=== PATIENT | male | born 1975 | race Caucasian/White ===

== ENCOUNTER 2018-01-12 08:57 | Day surgery (SDC) | payer BC ==
--- NOTE | 2018-01-12 07:23 | HP ---
DATE OF SURGERY: 01/12/2018 ADMISSION DIAGNOSIS: Right inguinal hernia. ANTICIPATED PROCEDURE: HISTORY OF PRESENT ILLNESS: The patient has a large right inguinal hernia recurrent presents for repair. PAST MEDICAL HISTORY: ALLERGIES: NONE. MEDICATIONS: None. PAST SURGICAL HISTORY: Hernia surgery 2016. SOCIAL HISTORY: Negative. FAMILY HISTORY: Negative. REVIEW OF SYSTEMS: Negative. PHYSICAL EXAMINATION: VITAL SIGNS: Normal. CHEST: Clear. COR: Regular. ABDOMEN: No palpable organomegaly or mass. IMPRESSION: Large symptomatic hernia. PLAN: Repair.
[~2018-01-12 08:57] MED LIST: KEFZOL 1 GM ONE; Lactated Ringers 1,000 ML IV ONE; Sensorcaine 0.25% 10 ML ONE
[2018-01-12] MEDS ORDERED: LIDOCAINE HCL 2% 100 MG/5 ML IJ ONE (08:58)
[2018-01-12] MEDS ORDERED: Marcaine Spinal Ampul IJ ONE (08:58)
[2018-01-12] MEDS ORDERED: Versed 2 MG/2 ML Injection IV ONE (08:58)
[2018-01-12] MEDS ORDERED: DIPRIVAN 200 MG/20 ML IV ONE (08:58)
[2018-01-12] MEDS ORDERED: TORAdol 30 mg Injection IJ ONE (08:58)
[2018-01-12] MEDS ORDERED: Decadron 4 MG INJ IV ONE (08:58)
[2018-01-12] MEDS ORDERED: CEFAZOLIN 2 GM-D5W BAG** 2 GM/50 ML ML IV ONE (09:30)
[2018-01-12] MEDS ORDERED: Pepcid 20 MG VIAL IV ONE (09:30)
[2018-01-12] MEDS ORDERED: Transderm Scop 1.5MG Patch ONE (09:30)
[2018-01-12] MEDS ORDERED: Lactated Ringers 1,000 ML IV ONE (09:31)
[2018-01-12] MEDS ORDERED: Reglan 10 MG/2 ML ONE (09:31)
[2018-01-12] MEDS: Lactated Ringers 1,000 ML IV SCH (09:34)
[2018-01-12] MEDS: Transderm Scop 1.5MG Patch TOP PRN (09:34)
[2018-01-12] MEDS: CEFAZOLIN 2 GM-D5W BAG** 2 GM/50 ML ML IV SCH (09:35)
[2018-01-12] MEDS: Pepcid 20 MG VIAL IV ONE (09:54)
[2018-01-12] MEDS: Reglan 10 MG/2 ML IV ONE (09:54)
[2018-01-12 15:02] VITALS: O2SAT 100
[2018-01-12 15:30] VITALS: BP 137/73; PULSE 41
--- NOTE | 2018-01-13 09:31 | OP ---
SURGERY DATE/TIME: 01/12/2018 1205 PREOPERATIVE DIAGNOSIS: Recurrent right inguinal hernia large. POSTOPERATIVE DIAGNOSIS: Recurrent right inguinal hernia large. PROCEDURE: Right inguinal herniorrhaphy with mesh. SURGEON: Kishore Lemus M.D. ANESTHESIA: General. COMPLICATIONS: None. CONDITION: Stable. INDICATION: The patient has symptomatic right inguinal hernia recurrent. He had this done two years ago. DESCRIPTION OF PROCEDURE: Taken to surgery. General anesthetic. Routine prep and drape. Curvilinear incision. He had a fair amount of scarring. External oblique opened. There was a 7 inch indirect hernia sac which was taken down. It had small bit of sliding on the medial corner. Suture was placed just above this with 0 Prolene. Excess sac removed. The floor was repaired with 0 Prolene and then a 1 x 4 mesh was placed in a Romario's ligament type fashion throughout and secured with 0 Prolene. Internal ligament was one clamp tight. Hemostasis satisfactory. It looked like very solid repair. External oblique closed with 0 Vicryl. Chava fascia closed with 3-0 Vicryl. Skin closed with 4-0 Vicryl. Steri-Strips applied. Sterile dressing applied. The patient tolerated the procedure satisfactorily.
== END 2018-01-12 15:15 | disposition home or self-care (01) ==
LOC: SDC 08:57
PROVIDERS: ATTEND Surgery
DX: K40.91 Unilateral inguinal hernia, without obstruction or gangrene, recurrent (principal)
CPT/HCPCS: 64486; 76937; 76942; C1781; J0690; J1100; J1885; J2250; J2704; A9270-GY

== ENCOUNTER 2021-06-05 11:03 | Observation (INO) | payer BC ==
--- NOTE | 2021-06-05 11:22 | ERPHSYRPT ---
- History of Present Illness Time Seen by Provider: 06/05/21 11:17 Source: patient Exam Limitations: no limitations Patient Subjective Stated Complaint: Pt states "I had ACL/Meniscus surgery on the [address] Valdez and I called him this morning and he said I need an ultr asound due to the swelling and pain." Triage Nursing Assessment: Pt presnted alert and oriented X 3, skin pwd. Pt has a knee fixater device on his left knee. Pt has swelling noted to hhis left ankle. Physician History: pt is 10 days SP Left ACL repair and now has swelling left ankle with neuropathic pain and just started gabapentin. No fever, no erythema. wound looks good. Nontender underlying bone, but general hypesthesia to skin touch in stocking pattern. Pulses and cap refill good. Method of Injury: other Occurred: this morning Quality: constant Severity of Pain-Max: moderate Severity of Pain-Current: moderate Lower Extremities Pain: leg: left Modifying Factors: Improves With: movement Associated Symptoms: none Allergies/Adverse Reactions: No Known Drug Allergies Allergy (Verified 01/06/18 10:45) Home Medications: Famotidine [Pepcid AC] 20 mg PO DAILY PRN PRN 01/12/18 [History] Hx Tetanus, Diphtheria Vaccination/Date Given: Yes Hx Influenza Vaccination/Date Given: No Hx Pneumococcal Vaccination/Date Given: No Immunizations Up to Date: Yes Travel Risk - International Travel Have you traveled outside of the country in past 3 weeks: No - Coronavirus Screening Are you exhibiting any of the following symptoms?: No Close contact with a COVID-19 positive Pt in past 14-21 Days: No - Vaccine Status Have you recieved a Covid-19 vaccination: No - Review of Systems Constitutional: No Fever, No Chills Eyes: No Symptoms Ears, Nose, & Throat: No Symptoms Respiratory: No Cough, No Dyspnea Cardiac: No Chest Pain, No Edema, No Syncope Abdominal/Gastrointestinal: No Abdominal Pain, No Nausea, No Vomiting, No Diarrhea Genitourinary Symptoms: No Dysuria Musculoskeletal: Other, No Back Pain, No Neck Pain Skin: No Symptoms, No Rash Neurological: No Symptoms, No Dizziness, No Focal Weakness, No Sensory Changes Psychological: No Symptoms Endocrine: No Symptoms All Other Systems: Reviewed and Negative - Past Medical History Pertinent Past Medical History: Yes Neurological History: No Pertinent History ENT History: No Pertinent History Cardiac History: No Pertinent History Respiratory History: No Pertinent History Endocrine Medical History: No Pertinent History Musculoskeletal History: No Pertinent History GI Medical History: GERD, Hemorrhoids, Hernia History: No Pertinent History Psycho-Social History: No Pertinent History Male Reproductive Disorders: No Pertinent History - Past Surgical History Past Surgical History: Yes Neuro Surgical History: No Pertinent History Cardiac: No Pertinent History Respiratory: No Pertinent History Gastrointestinal: Appendectomy, Hernia Repair Genitourinary: No Pertinent History Musculoskeletal: No Pertinent History Male Surgical History: No Pertinent History Other Surgical History: left knee - Social History Smoking Status: Never smoker Exposure to second hand smoke: No Drug Use: none Patient Lives Alone: No - Nursing Vital Signs Nursing Vital Signs: Initial Vital Signs Temperature 98.3 F 06/05/21 11:09 Pulse Rate 64 06/05/21 11:09 Respiratory Rate 20 06/05/21 11:09 Blood Pressure 168/93 06/05/21 11:09 O2 Sat by Pulse Oximetry 98 06/05/21 11:09 Pain Scale Pain Intensity 6 - Physical Exam General Appearance: no apparent distress, alert Eyes, Ears, Nose, Throat Exam: moist mucous membranes Neck Exam: non-tender, supple Cardiovascular/Respiratory Exam: chest non-tender, normal breath sounds, regular rate/rhythm, no respiratory distress Gastrointestinal/Abdominal Exam: non-tender, guarding Back Exam: normal inspection, No vertebral tenderness Hips Exam: bilateral: non-tender, normal inspection, normal range of motion, no evidence of injury Legs Exam: right leg: non-tender, normal inspection, normal range of motion, no evidence of injury, left leg: pain, swelling, other (hypesthesia) Knees Exam: bilateral knee: non-tender, normal inspection, normal range of motion, no evidence of injury Ankle Exam: bilateral ankle: non-tender, normal inspection, normal range of motion, no evidence of injury Foot Exam: left foot: pain, bilateral foot: normal inspection, normal range of motion, no evidence of injury DTR - Lower Extremities Exam: knee (R): 2+, knee (L): 2+, ankle (R): 2+, ankle (L): 2+ Neuro/Tendon Exam: normal sensation, normal motor functions Mental Status Exam: alert, oriented x 3, cooperative Skin Exam: normal color, warm, dry SpO2 Interpretation: normal SpO2: 98 O2 Delivery: Room Air - Course Nursing assessment & vital signs reviewed: Yes - Radiology Ultrasound Exam Left Venous Lower Extremity Ultrasound: discussed w/radiologist, tele radiology report, Other (Deep Femoral DVT.) Ordered Tests: Active Orders 24 hr Category Date Time Status VENOUS UNILAT/LIMITED EXTREMIT [US] Stat Exams 06/05/21 11:23 Completed CBC W DIFF Stat Lab 06/05/21 11:45 Completed Lab/Rad Data: Laboratory Result Diagrams 06/05/21 11:45 Laboratory Results 06/05/21 Range/Units 11:45 WBC 8.1 (4.0-10.5) K/mm3 RBC 4.97 (4.1-5.6) M/mm3 Hgb 15.4 (12.5-18.0) gm/dl Hct 47.1 (42-50) % MCV 94.8 (78-100) fl MCH 31.0 (26-32) pg MCHC 32.7 (32-36) g/dl RDW 12.4 (11.5-14.0) % Plt Count 269 (150-450) K/mm3 MPV 9.6 (7.5-11.0) fl Gran % 57.3 (36.0-66.0) % Eos # (Auto) 0.29 (0-0.5) Absolute Lymphs (auto) 2.44 (1.0-4.6) Absolute Monos (auto) 0.67 (0.0-1.3) Lymphocytes % 30.1 (24.0-44.0) % Monocytes % 8.3 (0.0-12.0) % Eosinophils % 3.6 (0.00-5.0) % Basophils % 0.7 (0.0-0.4) % Absolute Granulocytes 4.65 (1.4-6.9) Basophils # 0.06 (0-0.4) - Progress Progress: improved, re-examined Progress Note: 06/05/21 12:49 Discussed with pt and Dr. Johnson covering and all agree best on observation with beginning Lovenox initially to monitor for further symptoms. Discussed with : Gerry Will see patient in: hospital (observation) Counseled pt/family regarding: lab results, diagnosis, need for follow-up, rad results - Departure Departure Disposition: Observation Clinical Impression: Dvt femoral (deep venous thrombosis) Condition: Good Critical Care Time: No Referrals: YASMINE MIXON, FINANCIAL SERVICES TECHNICIAN [Primary Care Provider] - Follow up/PCP as directed
[2021-06-05 11:57] LABS: Absolute Neutrophil Ct (ANC) 4.65 (1.4-6.9); BASOPHIL % 0.7 % (0.0-0.4); Basophil (Absolute #) 0.06 (0-0.4); Eosinophil % 3.6 % (0.00-5.0); Eosinophil (Absolute #) 0.29 (0-0.5); Hematocrit 47.1 % (42-50); Hemoglobin 15.4 gm/dl (12.5-18.0); Lymphocyte (Absolute #) 2.44 (1.0-4.6); Lymphocytes % 30.1 % (24.0-44.0); Mean Cell Volume 94.8 fl (78-100); Mean Corpuscular Hgb Concent. 32.7 g/dl (32-36); Mean Platelet Volume 9.6 fl (7.5-11.0); Monocyte (Absolute #) 0.67 (0.0-1.3); Monocytes % 8.3 % (0.0-12.0); Neutrophil % 57.3 % (36.0-66.0); Platelet Count 269 K/mm3 (150-450); Red Blood Count 4.97 M/mm3 (4.1-5.6); Red Cell Distribution Width 12.4 % (11.5-14.0); White Blood Count 8.1 K/mm3 (4.0-10.5)
--- NOTE | 2021-06-05 12:14 | XRAY ---
Indication: Pain following knee surgery 1.5-2 weeks ago. Two-dimensional sonogram and color Doppler imaging of the major venous vessels of the left leg performed. Comparison: None Tiny nonoccluding thrombus in the proximal deep femoral vein. No thrombus seen in the remaining deep venous vessels of the left leg including greater saphenous vein. Patent veins demonstrate normal compressibility. Venous waveforms are normal with and without augmentation. Incidental 1.1 cm benign-appearing inguinal lymph node. Impression: Tiny nonoccluding thrombus deep femoral vein.
[2021-06-05 13:54] LABS: INFLUENZA A NEGATIVE (NEGATIVE); INFLUENZA B NEGATIVE (NEGATIVE); RESPIRATORY SYNCTIAL VIRUS NEGATIVE (Negative); SARS-CoV-2 Xpert Express NEGATIVE (NEGATIVE)
[2021-06-05] MEDS ORDERED: HUMULIN R SQ PRN (14:52)
[2021-06-05] MEDS ORDERED: Neurontin 100 MG PO SCH (15:00)
[2021-06-05] MEDS: MORPHINE SULFATE 4 MG INJ IV PRN ×3 (16:40→22:45)
[2021-06-05] MEDS: Zofran 4 MG/2 ML VIAL IV PRN ×2 (16:40→22:45)
[2021-06-05] MEDS: ENOXAPARIN SODIUM SQ SCH (16:41)
[2021-06-05] MEDS: Sodium Chloride 0.9% 1000 ML 1,000 ML IV SCH (16:42)
[2021-06-05] MEDS ORDERED: NEURONTIN 300 MG PO SCH (22:00)
[2021-06-05] MEDS: Colace 100 MG PO SCH (22:45)
[2021-06-05] MEDS: PATIENT OWN MEDICATION PO SCH (22:46)
[2021-06-06] MEDS: Sodium Chloride 0.9% 1000 ML 1,000 ML IV SCH ×2 (00:54→10:31)
[2021-06-06] MEDS: ENOXAPARIN SODIUM SQ SCH ×2 (04:06→17:22)
[2021-06-06] MEDS: MORPHINE SULFATE 4 MG INJ IV PRN ×4 (04:09→20:15)
[2021-06-06 06:48] LABS: Absolute Neutrophil Ct (ANC) 4.03 (1.4-6.9); BASOPHIL % 0.5 % (0.0-0.4); Basophil (Absolute #) 0.04 (0-0.4); Eosinophil % 3.6 % (0.00-5.0); Eosinophil (Absolute #) 0.27 (0-0.5); Hematocrit 43.6 % (42-50); Lymphocyte (Absolute #) 2.25 (1.0-4.6); Lymphocytes % 30.3 % (24.0-44.0); Mean Cell Volume 97.3 fl (78-100); Mean Corpuscular Hemoglobin 31.3 pg (26-32); Mean Corpuscular Hgb Concent. 32.1 g/dl (32-36); Mean Platelet Volume 9.8 fl (7.5-11.0); Monocyte (Absolute #) 0.83 (0.0-1.3); Monocytes % 11.2 % (0.0-12.0); Neutrophil % 54.4 % (36.0-66.0); Platelet Count 257 K/mm3 (150-450); Red Blood Count 4.48 M/mm3 (4.1-5.6); Red Cell Distribution Width 12.4 % (11.5-14.0); White Blood Count 7.4 K/mm3 (4.0-10.5)
[2021-06-06] MEDS: TYLENOL 325 MG PO PRN ×2 (07:25→13:19)
[2021-06-06] MEDS: Colace 100 MG PO SCH (09:12)
[2021-06-06] MEDS: PATIENT OWN MEDICATION PO SCH ×4 (09:13→22:05)
[2021-06-06] MEDS ORDERED: NON-FORMULARY ITEM (Esomeprazole Magnesium [Nexium] 20 MG Capsule.Dr) PO SCH (10:00)
[2021-06-06] MEDS ORDERED: MILK OF MAGNESIA 30 ML PO PRN (14:22)
[2021-06-06] MEDS: Zofran 4 MG/2 ML VIAL IV PRN (15:44)
[2021-06-06] MEDS ORDERED: BENADRYL 25 MG CAPSULE PO PRN (17:18)
[2021-06-06] MEDS: Senokot-S Tablet PO SCH (22:05)
--- NOTE | 2021-06-06 23:53 | PCM.HP ---
History of Present Illness - Chief Complaint Chief Complaint: DVT History of Present Illness: is a 45 year old male who presented to ER with left LE edema following ACL repair knee surgery.. Medications & Allergies Home Medications: Home Medication List Aspirin EC 325 mg [Ecotrin 325 MG] 325 mg PO DAILY 06/05/21 [History Confirmed 06/05/21] Esomeprazole Magnesium [Nexium] 20 mg PO DAILY 06/05/21 [History Confirmed 06/05/21] Gabapentin 300 mg [Neurontin 300 mg] 300 mg PO TID 06/05/21 [History Confirmed 06/05/21] Allergies/Adverse Reactions: Allergies Allergy/AdvReac Type Severity Reaction Status Date / Time No Known Drug Allergies Allergy Verified 06/05/21 15:45 - Past Medical History Past Medical History: No Neurological History: No Pertinent History ENT History: No Pertinent History Cardiac History: No Pertinent History Respiratory History: No Pertinent History Endocrine Medical History: No Pertinent History Musculoskelatal History: No Pertinent History GI Medical History: No Pertinent History History: No Pertinent History Pyscho-Social History: No Pertinent History Male Reproductive Disorders: No Pertinent History - Past Surgical History Past Surgical History: Yes Neuro Surgical History: No Pertinent History Cardiac History: No Pertinent History Respiratory Surgery: No Pertinent History GI Surgical History: Cholecystectomy, Hernia Repair Genitourinary Surgical Hx: No Pertinent History Musculskeletal Surgical Hx: No Pertinent History Male Surgical History: Vasectomy Other Surgical History: left knee - Social History Smoking Status: Never smoker Exposure to second hand smoke: No Alcohol: None Drug Use: none - Physical Exam Vital Signs: Vital Signs - 24 hr Temp Pulse Resp BP Pulse Ox 06/06/21 20:00 98.7 F 64 18 126/70 94 L 06/06/21 16:00 98.4 F 59 L 13 132/62 96 06/06/21 12:00 98.4 F 59 L 13 129/66 96 06/06/21 08:00 97.8 F 69 19 120/61 96 06/06/21 04:00 97.8 F 60 16 126/63 94 L 06/06/21 00:00 97.5 F 58 L 18 124/72 94 L Results - Labs Lab/Micro Results: Lab Results-Last 24 Hours 06/06/21 Range/Units 05:35 WBC 7.4 (4.0-10.5) K/mm3 RBC 4.48 (4.1-5.6) M/mm3 Hgb 14.0 (12.5-18.0) gm/dl Hct 43.6 (42-50) % MCV 97.3 (78-100) fl MCH 31.3 (26-32) pg MCHC 32.1 (32-36) g/dl RDW 12.4 (11.5-14.0) % Plt Count 257 (150-450) K/mm3 MPV 9.8 (7.5-11.0) fl Gran % 54.4 (36.0-66.0) % Eos # (Auto) 0.27 (0-0.5) Absolute Lymphs (auto) 2.25 (1.0-4.6) Absolute Monos (auto) 0.83 (0.0-1.3) Lymphocytes % 30.3 (24.0-44.0) % Monocytes % 11.2 (0.0-12.0) % Eosinophils % 3.6 (0.00-5.0) % Basophils % 0.5 (0.0-0.4) % Absolute Granulocytes 4.03 (1.4-6.9) Basophils # 0.04 (0-0.4) - Radiology Impressions Radiology Exams & Impressions: Radiology Procedures Category Date Time Status VENOUS UNILAT/LIMITED EXTREMIT [US] Stat Exams 06/05/21 11:23 Completed
[2021-06-07] MEDS: MORPHINE SULFATE 4 MG INJ IV PRN ×2 (00:17→05:56)
[2021-06-07] MEDS: ENOXAPARIN SODIUM SQ SCH ×2 (05:56→17:27)
[2021-06-07] MEDS: Senokot-S Tablet PO SCH ×2 (09:49→19:59)
[2021-06-07] MEDS: PATIENT OWN MEDICATION PO SCH ×2 (09:50)
[2021-06-07] MEDS: OXYCODONE-ACETAMINOPHEN 10-325 PO PRN ×2 (11:51→19:58)
[2021-06-07] MEDS: Neurontin 400 MG PO SCH ×3 (11:51→19:58)
--- NOTE | 2021-06-07 16:14 | PCM.NOTE ---
Date and Time: 06/07/21 1607 Subjective Assessment: Patient continues to c/o pain in LLE 'crew sock" distribution left foot . States Morphine helps post op knee pain from 4 to zero but not the foot and skin pain feels like it is "huge". I spoke to patient's surgeon, Ortho Dr Valdez yesterday evening and he stated symptoms are due to the block and if s/s c ontinues ,he will order an EMG. I offered a Teleneuro consult but patient refused. OBJECTIVE DATA Vital Signs: Vital Signs - 24 hr Temp Pulse Resp BP Pulse Ox 06/07/21 12:00 98.7 F 68 17 135/80 95 06/07/21 08:00 98.2 F 66 15 126/68 94 L 06/07/21 04:00 97.8 F 63 17 127/79 92 L 06/07/21 00:00 97.9 F 59 L 16 114/64 94 L 06/06/21 20:00 98.7 F 64 18 126/70 94 L Pain Assessment - Last Documented Pain Intensity 10 Pain Scale Used [facility] Intake and Output: Intake & Output 06/05/21 06/06/21 06/07/21 06/08/21 11:59 11:59 11:59 11:59 Intake Total 960 1120 Output Total 1800 2500 Balance -840 -1380 Weight 94.4 kg 92.8 kg
[2021-06-08] MEDS: OXYCODONE-ACETAMINOPHEN 10-325 PO PRN ×3 (01:28→09:53)
[2021-06-08] MEDS: ENOXAPARIN SODIUM SQ SCH (05:30)
[2021-06-08] MEDS: Zofran 4 MG/2 ML VIAL IV PRN (07:43)
[2021-06-08] MEDS: Senokot-S Tablet PO SCH (09:51)
[2021-06-08] MEDS: PATIENT OWN MEDICATION PO SCH (09:52)
[2021-06-08] MEDS: Neurontin 400 MG PO SCH (09:52)
[2021-06-08] MEDS ORDERED: solu-MEDROL 80 MG, Sterile H2O 10 ml 2 ML IV ONE ×2 (10:30)
[2021-06-08 11:03] LABS: Absolute Neutrophil Ct (ANC) 4.14 (1.4-6.9); BASOPHIL % 0.6 % (0.0-0.4); Basophil (Absolute #) 0.04 (0-0.4); Eosinophil % 2.9 % (0.00-5.0); Hematocrit 48.6 % (42-50); Lymphocyte (Absolute #) 1.95 (1.0-4.6); Mean Corpuscular Hemoglobin 30.9 pg (26-32); Mean Corpuscular Hgb Concent. 32.9 g/dl (32-36); Mean Platelet Volume 9.8 fl (7.5-11.0); Monocyte (Absolute #) 0.64 (0.0-1.3); Monocytes % 9.2 % (0.0-12.0); Neutrophil % 59.3 % (36.0-66.0); Platelet Count 266 K/mm3 (150-450); Red Blood Count 5.17 M/mm3 (4.1-5.6); Red Cell Distribution Width 12.3 % (11.5-14.0)
--- NOTE | 2021-06-08 11:06 | PCM.DCORD ---
- Discharge Disposition: Home, Self-Care Condition: Good Prescriptions: New Gabapentin 400 mg [Neurontin 400 MG] 0 mg PO Q4-6HPRN 10 Days #60 cap Apixaban [Eliquis] 5 mg PO BID 30 Days #1 packet Oxycodone / APAP 10/325 mg [Oxycodone-Acetaminophen 10-325] 1 tab PO Q4H PRN PRN tablet PRN Reason: Pain Prednisone 10 mg [Deltasone 10 mg] 10 mg PO DAILY 14 Days #30 tablet Discontinued Aspirin EC 325 mg [Ecotrin 325 MG] 325 mg PO DAILY Gabapentin 300 mg [Neurontin 300 mg] 300 mg PO TID No Action Esomeprazole Magnesium [Nexium] 20 mg PO DAILY Instructions: Deep Vein Thrombosis (Blood Clots in the Legs) (DC) Additional Instructions: CONTINUE WITH TOE TOUCH WEIGHT BEARING AND IMMOBILIZER UNTIL RELEASED BY ORTHO *Percocet 10mg TID # 21 tabs - Rx sent for 7 days through [place] (Dr Singh) NEUROLOGY consult plus NCS to be [facility]. Follow up with: TERESSA PRITCHETT MD [NON-STAFF PHY W/O PRIVILEGES] - YASMINE MIXON NP [Primary Care Provider] - 06/15/21 1:00 pm Forms: Discharge Instructions
[2021-06-08 11:27] LABS: Erythrocyte Sedimentation Rate 18 mm/hr (0-15)
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
[2021-06-08 12:06] VITALS: BP 131/79; PULSE 68; O2SAT 93
[2021-06-08 12:46] LABS: ALBUMIN 4.4 g/dL (3.5-5.0); ALKALINE PHOSPHATASE 125 U/L (38-126); ANION GAP 12.3 MEQ/L (5-15); BLOOD UREA NITROGEN 14 mg/dL (9-20); CHLORIDE 98 mmol/L (98-107); Calcium 9.6 mg/dL (8.4-10.2); Carbon Dioxide 31 mmol/L (22-30); Creatinine 1 0.84 mg/dL (0.66-1.25); EST GLOMERULAR FILTRATION RATE > 60.0 ML/MIN; Glucose 128 mg/dL (74-106); Potassium 4.6 mmol/L (3.5-5.1); SGOT/AST 162 U/L (17-59); SGPT/ALT 373 U/L (0-50); SODIUM 137 mmol/L (137-145); Total Protein 7.3 g/dL (6.3-8.2)
== END 2021-06-08 12:40 | disposition home or self-care (01) ==
LOC: ED 11:03 → MED SURG 14:45
PROVIDERS: ADMIT Family Medicine; ATTEND Family Medicine
DX: I82.412 Acute embolism and thrombosis of left femoral vein (principal); Z98.890 Other specified postprocedural states; M79.672 Pain in left foot; R29.898 Other symptoms and signs involving the musculoskeletal system; Z20.828 Contact with and (suspected) exposure to other viral communicable diseases
CPT/HCPCS: 0241U; 36415; 80053; 82607; 84443; 84550; 85025; 85652; 86038; 93268; 93971; 94760; 99285; G0378; J1650; J2270; J2405; J2930; A9270-GY

== ENCOUNTER 2021-07-15 09:50 | Day surgery (SDC) | payer BC ==
[2021-07-15] MEDS ORDERED: Xylocaine 1% Vial 30 ML PF IJ ONE (09:51)
[2021-07-15] MEDS ORDERED: Sensorcaine 0.25% 10 ML IJ ONE (09:51)
[2021-07-15] MEDS ORDERED: Lactated Ringers 1,000 ML IV ONE (11:19)
[2021-07-15] MEDS ORDERED: DIPRIVAN 200 MG/20 ML IV ONE (11:46)
--- NOTE | 2021-07-15 13:09 | XRAY ---
Indication: Left lumbar sympathetic nerve block. Intraoperative fluoroscopy provided for 59 seconds. 3 digital spot images submitted for interpretation demonstrates 2 posterior needle tips projecting just anterior to mid lumbar segment. Small amount of contrast injected for both needle tip placement. Correlate with intraoperative findings/report.
--- NOTE | 2021-07-15 13:17 | XRAY ---
59 seconds fluoroscopy was used in surgery for a left lumbar sympathetic nerve block.
== END 2021-07-15 12:20 | disposition home or self-care (01) ==
LOC: SDC-PAIN 09:50
PROVIDERS: ATTEND Psychiatry & Neurology Pain Medicine
DX: G90.522 Complex regional pain syndrome I of left lower limb (principal); Z79.899 Other long term (current) drug therapy
CPT/HCPCS: 64520; 72100; 77002; J2001; J2704; Q9966

== ENCOUNTER 2021-08-19 13:02 | Day surgery (SDC) | payer BC ==
[2021-08-19] MEDS ORDERED: BUPIVACAINE 0.5% VIAL IJ ONE (13:03)
[2021-08-19] MEDS ORDERED: Xylocaine 1% Vial 30 ML PF IJ ONE (13:03)
[2021-08-19] MEDS ORDERED: Lactated Ringers 1,000 ML IV ONE (15:11)
[2021-08-19] MEDS ORDERED: DIPRIVAN 200 MG/20 ML IV ONE (15:27)
--- NOTE | 2021-08-19 16:33 | XRAY ---
Indication: Left lumbar sympathetic nerve block. Intraoperative fluoroscopy provided for 38 seconds. 4 digital spot images submitted for interpretation demonstrates left posterior needle tip just anterior to L2-L3 interspace. Small amount of contrast injected for needle tip placement L3 level. Correlate with intraoperative findings/report.
--- NOTE | 2021-08-19 16:35 | XRAY ---
38 seconds fluoroscopy time in surgery for left lumbar sympathetic nerve block.
== END 2021-08-19 15:57 | disposition home or self-care (01) ==
LOC: SDC-PAIN 13:02
PROVIDERS: ATTEND Psychiatry & Neurology Pain Medicine
DX: M47.812 Spondylosis without myelopathy or radiculopathy, cervical region (principal); Z79.01 Long term (current) use of anticoagulants; Z79.899 Other long term (current) drug therapy
CPT/HCPCS: 64520; 72100; 77002; J2001; J2704; Q9966

== ENCOUNTER 2024-06-14 06:06 | Day surgery (SDC) | payer BC ==
--- NOTE | 2024-06-13 13:29 | HP ---
HISTORY OF PRESENT ILLNESS: Patient is a 48-year-old male who presents for complaints of a left inguinal hernia. He has some symptoms and some pain with his hernia at times. His hernia is moderately symptomatic and moderate in size. PAST MEDICAL HISTORY: GERD. HOME MEDICATIONS: Famotidine. ALLERGIES: None reported. PAST SURGICAL HISTORY: Inguinal hernia repair. SOCIAL HISTORY: Occasional alcohol. FAMILY HISTORY: None reported. REVIEW OF SYSTEMS: CONSTITUTIONAL: Denies fever or chills. CHEST: Denies shortness of breath. CARDIOVASCULAR: Denies chest pain. ABDOMEN: Reports left inguinal hernia pain. PHYSICAL EXAMINATION: GENERAL: No acute distress. CARDIOVASCULAR: Regular rate and rhythm. RESPIRATORY: Nonlabored. No shortness of breath. ABDOMEN: Soft with a moderately-sized left inguinal hernia. ASSESSMENT: Left inguinal hernia. PLAN: Left inguinal hernia repair with Dr. Kishore Lemus. This report was dictated for Dr. Lemus by Alexa Tabor NP.
[2024-06-14] MEDS: CEFAZOLIN 2 GM/100 ML NaCl 2 GM/100 ML IVPB IV SCH (06:38)
[2024-06-14] MEDS: Lactated Ringers 1,000 ML IV SCH (06:38)
[2024-06-14] MEDS: Pepcid 20 MG VIAL IV ONE (06:39)
[2024-06-14] MEDS: Transderm Scop 1.5MG Patch TOP PRN (06:39)
[2024-06-14] MEDS: Reglan 10 MG/2 ML IV ONE (06:39)
[2024-06-14] MEDS ORDERED: Sensorcaine 0.25% 10 ML ONE ×3 (07:12→09:15)
[2024-06-14] MEDS ORDERED: Lactated Ringers 1,000 ML IV ONE (07:12)
[2024-06-14] MEDS ORDERED: KEFZOL 1 GM ONE (07:16)
[2024-06-14] MEDS ORDERED: DIPRIVAN 200 MG/20 ML IV ONE ×2 (08:05→09:25)
[2024-06-14] MEDS ORDERED: ROCURONIUM BROMIDE IV ONE (08:05)
[2024-06-14] MEDS ORDERED: BRIDION 200MG/2ML IV ONE (08:05)
[2024-06-14] MEDS ORDERED: DEXMEDETOMIDINE 80 MCG/20ML-NS IV ONE (08:05)
[2024-06-14] MEDS ORDERED: Zofran 4 MG/2 ML VIAL ONE (08:05)
[2024-06-14] MEDS ORDERED: Xylocaine-Mpf 2% 5 Ml Vial ONE (08:05)
[2024-06-14] MEDS ORDERED: Versed 2 MG/2 ML Injection ONE (08:06)
[2024-06-14] MEDS ORDERED: SUBLIMAZE 100 MCG/2 ML ONE (08:06)
[2024-06-14] MEDS ORDERED: Marcaine Mpf 0.5% Vial 30 Ml ONE (08:11)
[2024-06-14] MEDS ORDERED: EXPAREL 133 MG/10 ML VIAL IJ ONE (08:11)
[2024-06-14] MEDS ORDERED: TORAdol 30 mg Injection ONE (08:37)
[2024-06-14] MEDS ORDERED: Decadron 4 MG INJ ONE (08:37)
[2024-06-14] MEDS ORDERED: ROBINUL ONE (08:54)
[2024-06-14] MEDS ORDERED: ATROPINE SULFATE 1MG ONE (08:57)
[2024-06-14 11:06] VITALS: RESP 18; O2SAT 93
[2024-06-14 11:21] VITALS: BP 125/88; PULSE 65; TEMP 97.2
--- NOTE | 2024-06-18 09:09 | OP ---
SURGERY DATE/TIME: 06/14/2024 [id number] PREOPERATIVE DIAGNOSIS: Symptomatic left inguinal hernia. POSTOPERATIVE DIAGNOSIS: A 4-inch indirect hernia, small direct hernia. PROCEDURE: Open left inguinal herniorrhaphy with mesh. SURGEON: Kishore Lemus MD ANESTHESIA: General. COMPLICATIONS: None. CONDITION: Stable. DESCRIPTION OF PROCEDURE AND FINDINGS: Patient was taken to surgery, general anesthetic, routine prep and drape. Limited curvilinear incision, 0.25% Marcaine, external oblique opened, external ring opened. Cord was skeletonized. A minimal ilioinguinal nerve. Cord was lifted up. There was a 4-inch indirect sac which had no sliding component, was highly ligated with suture #0 Prolene. There was a 4-inch lipoma on the cord that was taken, tied off with 3-0 Vicryl. At the floor there was a slight direct hernia throughout. This was reinforced in a Romario's ligament type fashion with 0 Prolene. First 4 stitches in Romario's then transitioned up to Poupart's. This was very solid. The cephalad portion of the mesh was secured at the conjoint tendon throughout. The internal ring was 1 clamp tight. Cord laid back in natural position. The repair looked very solid, looked excellent. External oblique closed with 0 Vicryl, Chava's approximated with 2-0 Vicryl, skin closed with 4-0 Vicryl. Steri-Strips applied. Sterile dressing applied. A field block was also placed by THERESA Robison with Marcaine.
== END 2024-06-14 11:25 | disposition home or self-care (01) ==
LOC: SDC 06:06
PROVIDERS: ATTEND Surgery
DX: K40.90 Unilateral inguinal hernia, without obstruction or gangrene, not specified as recurrent (principal)
CPT/HCPCS: 49505; C1781; J0461; J0690; J1100; J1885; J2250; J2405; J2704; J3010; A9270-GY